=== PATIENT | male | born 1975 | race Caucasian/White ===

== ENCOUNTER 2017-09-29 00:03 | Emergency (ER) | payer OTHER ==
[2017-09-29] MEDS ORDERED: TDAP ADULT 0.5 ML INJ (BOOSTRIX) IM ONE (00:19)
[2017-09-29 00:20] VITALS: BP 137/95; PULSE 94; RESP 18; TEMP 98.6; O2SAT 95
--- NOTE | 2017-09-29 00:43 | EDPHY ---
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 He clean the wound with rubbing alcohol prior to arrival. He denies any other associated symptoms or injuries. He came here by private vehicle for further evaluation. ROS: Neuro: No numbness or tingling. Musculoskeletal: No deep muscular pain in the area. Integumentary: No foreign bodies sensation. The patient was cutting plastic prior to the injury. 5 point ROS is otherwise negative. Past Medical/Surgical History: Last tetanus immunization was more than 7 years ago per patient. Smoking Status: Never smoked Physical Exam: Physical Exam Vital signs are normal. General: No acute distress Eyes: Pupils equal and react to light. Extraocular motions are intact. Cardiac: Brisk capillary refill is intact throughout. Skin: The patient has a 1 cm full-thickness laceration with subcutaneous tissue evident and mild bleeding. There is no muscle injury and no foreign bodies and direct examination. The wound is open by few mm. No rash or pallor. Neuro: Alert with no sensorimotor deficits in the affected extremity. Constitutional: Initial Vital Signs Temperature (C) 37.0 C 09/29/17 00:17 Heart Rate 94 09/29/17 00:17 Respiratory Rate 18 09/29/17 00:17 Blood Pressure 137/95 H 09/29/17 00:17 O2 Sat (%) 95 09/29/17 00:17 O2 Delivery Mode Room Air Allergies/Adverse Reactions: No Known Allergies Allergy (Unverified 09/29/17 00:13) Home Medications: Medication Instructions Recorded Acetaminophen 500 mg PO 09/29/17 Albuterol Sulfate [Proair Hfa] 09/29/17 Fluticasone/Salmeterol [Advair Hfa 09/29/17 115-21 Mcg Inhaler] Mucinex 09/29/17 MDM/Departure - MDM Procedures: The wound is 1 cm. The wound was copiously irrigated with saline. The wound was explored for foreign bodies and none were found. The wound was prepped and draped in the normal sterile fashion. The wound was anesthetized using 1% plain lidocaine, 27 gauge needle-1 mL with good effect. The edges were reapproximated using 4 0 Prolene-2 running sutures with good hemostasis and cosmesis. The patient tolerated the procedure well. There were no complications. Medications Given: Discontinued Medications Diphtheria/Tetanus/Acell Pertussis (Boostrix) 0.5 ml IM .ONCE ONE Stop: 09/29/17 00:20 Last Admin: 09/29/17 00:25 Dose: 0.5 ml ED Course/Re-evaluation: Tetanus booster Dressing is applied by our nurse. We counseled regarding wound care. Discussion: Simple laceration without neurovascular injury - Depart Disposition: Home, Routine, Self-Care Clinical Impression: Thigh laceration Qualifiers: Encounter type: initial encounter Laterality: left Qualified Code(s): S71.112A - Laceration without foreign body, left thigh, initial encounter Condition: Good Instructions: Care For Your Stitches (ED) Additional Instructions: Diagnosis: Thigh laceration Plan: Keep the wound clean and dry for the next 2 days, then clean daily with warm soapy water. You may proceed with her usual work. This injury should not presenting problem with daily activities. Return for suture removal in 10-12 days Tylenol or ibuprofen if needed for pain Return sooner if he develops redness, discharge or other concerns for infection. Referrals: Patient,NotPresent [Primary Care Provider] - As per Instructions
== END 2017-09-29 00:54 | disposition home or self-care (01) ==
LOC: CED 00:03
PROC: 0HQJXZZ Repair Left Upper Leg Skin, External Approach (ICD-10-PCS; principal; 2017-09-29)
DX: S71.112A Laceration without foreign body, left thigh, initial encounter (principal); Z23 Encounter for immunization; W26.0XXA Contact with knife, initial encounter; Y92.69 Other specified industrial and construction area as the place of occurrence of the external cause; Y99.0 Civilian activity done for income or pay; Y93.89 Activity, other specified